=== PATIENT | male | born 1930 | race African-American/Black ===

== ENCOUNTER 2018-10-07 11:16 | Inpatient (IN) | payer OTHER ==
[~2018-10-07] VITALS: Ht 188 cm; Wt 79.4 kg
[2018-10-07] MEDS ORDERED: [UNRECOGNIZED DRUG - REMARK] (11:46)
[2018-10-07] MEDS ORDERED: ONDANSETRON HCL 4MG/2ML INJ IV STA (15:33)
[2018-10-07] MEDS ORDERED: MECLIZINE 25MG TABLET PO ONE (15:45)
[2018-10-07 16:23] LABS: BASOPHILS % 0.4 % (0.0-2.0); EOSINOPHILS % 2.1 % (0.0-5.0); HEMATOCRIT. 47.1 % (42.0-52.0); HEMOGLOBIN. 15.5 g/dL (14.0-18.0); LYMPHOCYTES % 19.6 % (20.0-50.0); MEAN CORPUSCULAR HEMOGLOBIN 27.2 pg (28.0-32.0); MEAN CORPUSCULAR VOLUME 82.8 fL (80.0-94.0); MEAN PLATELET VOLUME 8.5 fl (7.4-10.4); MONOCYTES % 6.6 % (2.0-8.0); NEUTROPHILS % 71.3 % (40.0-76.0); PLATELET 151 x1000/uL (130-400); RED BLOOD CELL COUNT 5.69 mill/uL (4.7-6.1); RED CELL DISTRIBUTION WIDTH 15.2 % (11.6-14.6)
[2018-10-07 16:32] LABS: CHLORIDE 105 mEq/L (98-107); INR 1.1; PARTIAL THROMBOPLASTIN TIME 27.1 sec (23.4-31.0); PROTHROMBIN TIME 10.9 sec (9.1-11.1)
[2018-10-07 17:56] LABS: CLARITY URINE CLEAR (CLEAR); COLOR URINE YELLOW (YELLOW); KETONES URINE NEGATIVE (NEGATIVE); LEUKOCYTE ESTERASE URINE 1+ (NEGATIVE); NITRITE URINE NEGATIVE (NEGATIVE); OCCULT BLOOD URINE NEGATIVE (NEGATIVE); PROTEIN URINE TRACE (NEGATIVE); SPECIFIC GRAVITY URINE 1.014 (1.005-1.030)
[2018-10-07] MEDS ORDERED: IPRATROPIUM BROMIDE (0.02%) 0.5MG/2.5ML NEB ONE (18:13)
[2018-10-07] MEDS ORDERED: ALBUTEROL (0.083%) 2.5MG/3ML NEB ONE (18:13)
[2018-10-07] MEDS ORDERED: SODIUM CHLORIDE 0.9% 500 ML IV ONE (18:41)
[2018-10-07] MEDS ORDERED: CEFTRIAXONE 1 G PREMIX 50 ML IV ONE (18:45)
[2018-10-08] VITALS (7 sets, daily range): BP systolic 106–136; BP diastolic 58–85
[2018-10-08] MEDS ORDERED: HYDROCODONE/ACETAMINOPHEN 5/325MG TABLET PO PRN (14:00)
[2018-10-08] MEDS ORDERED: DEXT 5%/0.45% NACL 1000ML 1,000 ML IV SCH (14:00)
[2018-10-08] MEDS ORDERED: IPRATROPIUM/ALBUTEROL 0.5-3(2.5)MG/3ML NEB INH PRN (14:00)
[2018-10-08] MEDS ORDERED: ACETAMINOPHEN 325MG TABLET PO PRN (14:00)
[2018-10-08] MEDS ORDERED: CEFTRIAXONE 1 G PREMIX 50 ML IV SCH (14:00)
[2018-10-08] MEDS ORDERED: ONDANSETRON HCL 4MG/2ML INJ IV PRN (14:00)
[2018-10-08] MEDS ORDERED: ENOXAPARIN 40MG/0.4ML SYR SUBCUT SCH (15:00)
[2018-10-08 16:49] LABS: CREATINE KINASE 122 IU/L (39-308)
[2018-10-08] MEDS ORDERED: CEFTRIAXONE 1,000 MG in DEXTROSE 5% WATER 50 ML IV SCH (21:00)
[2018-10-08] MEDS: LORAZEPAM 2MG/ML CPJ IV PRN (21:14)
[2018-10-08 23:06] LABS: CREATINE KINASE 151 IU/L (39-308)
[2018-10-09] VITALS (13 sets, daily range): BP systolic 115–167; BP diastolic 57–136
[2018-10-09] MEDS: LORAZEPAM 2MG/ML CPJ IV PRN (03:01)
[2018-10-09 06:55] LABS: BASOPHILS % 0.5 % (0.0-2.0); EOSINOPHILS % 6.9 % (0.0-5.0); HEMATOCRIT. 44.6 % (42.0-52.0); HEMOGLOBIN. 14.5 g/dL (14.0-18.0); MEAN CORPUSCULAR VOLUME 82.9 fL (80.0-94.0); MEAN PLATELET VOLUME 8.6 fl (7.4-10.4); MONOCYTES % 11.4 % (2.0-8.0); NEUTROPHILS % 53.2 % (40.0-76.0); PLATELET 109 x1000/uL (130-400); RED BLOOD CELL COUNT 5.38 mill/uL (4.7-6.1); RED CELL DISTRIBUTION WIDTH 15.3 % (11.6-14.6)
[2018-10-09 09:37] LABS: CHLORIDE 108 mEq/L (98-107)
[2018-10-09 09:44] LABS: LDL CHOLESTEROL 80 mg/dL (5-100)
[2018-10-09 09:46] LABS: T4 FREE 1.28 ng/dL (0.76-1.46)
[2018-10-09 09:47] LABS: HDL CHOLESTEROL 59 mg/dL (40-59)
== END 2018-10-09 16:15 | disposition home or self-care (01) | DRG 315 ==
LOC: ER 11:45 → 5EST 19:11 → ENRESERV 10-08 09:50 → 5EST 10-08 22:20
PROVIDERS: ADMIT Internal Medicine; ATTEND Internal Medicine
DX: I95.9 Hypotension, unspecified (principal); N39.0 Urinary tract infection, site not specified; I11.0 Hypertensive heart disease with heart failure; I50.9 Heart failure, unspecified; Z86.73 Personal history of transient ischemic attack (TIA), and cerebral infarction without residual deficits
CPT/HCPCS: 36415; 71045; 80061; 82550; 83735; 83880; 84439; 84443; 84484; 93005; 96365; 96375; 97162; 99285; J0696; J1650; J2060; J2405; J7040; J7060; J7611; J8597